=== PATIENT | female | born 1995 | race Caucasian/White ===

== ENCOUNTER 2016-11-03 14:03 | Outpatient (CLI) | payer MEDICAID ==
[~2016-11-03] VITALS: Ht 167.6 cm; Wt 94.5 kg
[~2016-11-03 14:03] MED LIST: HYDR-882 PO; IBUP200T48 PO; NITR100C56 PO; OXYC-302 PO; PREN1TAB60 PO
[2016-11-03 14:25] VITALS: BP 111/59
[2016-11-03] MEDS ORDERED: PREN-3 PO (14:43)
[2016-11-03] MEDS ORDERED: NITR100C56 PO (15:06)
== END 2016-11-03 15:25 | disposition home or self-care (01) ==
LOC: LDOP 14:03
PROVIDERS: ATTEND Obstetrics & Gynecology
DX: O26.892 Other specified pregnancy related conditions, second trimester (principal); O30.002 Twin pregnancy, unspecified number of placenta and unspecified number of amniotic sacs, second trimester; O11.2 Pre-existing hypertension with pre-eclampsia, second trimester; R10.9 Unspecified abdominal pain; Z3A.21 21 weeks gestation of pregnancy
CPT/HCPCS: 59025; 81001; 87086; 99211; G0463

== ENCOUNTER → 2016-11-07 | Outpatient (CLI) | payer MEDICAID ==
[~2016-11-07] MED LIST changes: +PREN-3 PO
== END | disposition home or self-care (01) ==
LOC: LDOP 19:18
PROVIDERS: ATTEND Obstetrics & Gynecology
DX: O36.8120 Decreased fetal movements, second trimester, not applicable or unspecified (principal); Z3A.00 Weeks of gestation of pregnancy not specified
CPT/HCPCS: 59025; 99211; G0463

== ENCOUNTER 2016-12-16 13:10 | Observation (INO) | payer MEDICAID ==
[~2016-12-16] VITALS: Ht 167.6 cm; Wt 96.0 kg
[2016-12-16 13:27] VITALS: BP 121/62
[2016-12-16] MEDS: BUTALB/APAP/CAFFEINE 50MG/325MG/40MG PO PRN ×2 (14:07→18:44)
[2016-12-16] MEDS ORDERED: PREN1TAB60 PO (14:09)
[2016-12-16] MEDS ORDERED: ACET650S21 PO (14:10)
[2016-12-16 14:39] LABS: AMNI OBC PASS; AMNISURE NEGATIVE (NEGATIVE)
[2016-12-16] MEDS ORDERED: LACTATED RINGERS 1,000 ML IVBOLUS ONE ×2 (16:00)
[2016-12-16] MEDS ORDERED: ONDANSETRON 2MG/ML, 2ML IVPush ONE (16:00)
[2016-12-16] MEDS ORDERED: ONDANSETRON 2MG/ML, 2ML ONE (16:10)
[2016-12-16] MEDS ORDERED: TERBUTALINE 1 MG/ML, 1ML ONE (17:35)
[2016-12-16] MEDS ORDERED: LACTATED RINGERS 1,000 ML IV SCH ×2 (18:00)
[2016-12-16] MEDS ORDERED: TERBUTALINE 1 MG/ML, 1ML SQ ONE (18:00)
[2016-12-16] MEDS ORDERED: ONDA8TAB12 PO (18:21)
[2016-12-16] MEDS ORDERED: RANI150T8 PO (18:22)
[2016-12-16] MEDS ORDERED: fioricet PO (18:25)
== END 2016-12-16 18:56 | disposition home or self-care (01) ==
LOC: LDOP 13:10 → LDIP 15:44
PROVIDERS: ADMIT Obstetrics & Gynecology; ATTEND Obstetrics & Gynecology
DX: O26.899 Other specified pregnancy related conditions, unspecified trimester (principal); O29.40 Spinal and epidural anesthesia induced headache during pregnancy, unspecified trimester; Z3A.00 Weeks of gestation of pregnancy not specified
CPT/HCPCS: 36415; 59025; 81001; 82731; 84112; 96361; 96372; 96374; G0378; J2405; J3105; J7120; 96360

== ENCOUNTER 2017-01-20 15:53 | Outpatient (CLI) | payer MEDICAID ==
[~2017-01-20] VITALS: Ht 167.6 cm; Wt 99.0 kg
[~2017-01-20 15:53] MED LIST changes: +ACET650S21 PO; +ONDA8TAB12 PO; +RANI150T8 PO; +fioricet PO
[2017-01-20 16:17] VITALS: BP 132/81
[2017-01-20 16:37] LABS: HEMATOCRIT 36.6 % (34.6-47.8); HEMOGLOBIN 12.2 g/dL (11.7-16.4); WHITE BLOOD COUNT 11.8 x10^3/uL (3.4-10)
[2017-01-20 16:47] LABS: BLOOD UREA NITROGEN 6 mg/dL (7-18)
[2017-01-20 16:50] LABS: ASPARTATE AMINO TRANSFERASE 5 U/L (15-37); LACTATE DEHYDROGENASE 153 U/L (84-246)
== END 2017-01-20 17:40 | disposition home or self-care (01) ==
LOC: LDOP 15:53
PROVIDERS: ATTEND Obstetrics & Gynecology
DX: O11.3 Pre-existing hypertension with pre-eclampsia, third trimester (principal); O30.043 Twin pregnancy, dichorionic/diamniotic, third trimester; Z3A.31 31 weeks gestation of pregnancy
CPT/HCPCS: 36415; 59025; 80053; 81001; 81050; 82248; 82570; 83615; 84156; 84550; 85025; 87086; 99211; G0463

== ENCOUNTER → 2017-01-21 | Outpatient (CLI) | payer MEDICAID ==
[~2017-01-21] VITALS: Ht 167.6 cm; Wt 98.6 kg
[2017-01-21 01:59] VITALS: BP 127/72
== END ==
LOC: LDOP 01:38
PROVIDERS: ATTEND Obstetrics & Gynecology
DX: O11.3 Pre-existing hypertension with pre-eclampsia, third trimester (principal); O30.043 Twin pregnancy, dichorionic/diamniotic, third trimester; Z3A.00 Weeks of gestation of pregnancy not specified
CPT/HCPCS: 59025; 99211; G0463

== ENCOUNTER 2017-02-01 16:53 | Outpatient (CLI) | payer MEDICAID ==
[~2017-02-01] VITALS: Ht 167.6 cm; Wt 86.0 kg
[2017-02-01 17:04] VITALS: BP 132/78
[2017-02-01 17:14] LABS: HEMATOCRIT 40.7 % (34.6-47.8); HEMOGLOBIN 13.4 g/dL (11.7-16.4); WHITE BLOOD COUNT 14.4 x10^3/uL (3.4-10)
[2017-02-01 17:27] LABS: BLOOD UREA NITROGEN 7 mg/dL (7-18)
[2017-02-01 17:34] LABS: ASPARTATE AMINO TRANSFERASE 18 U/L (15-37); LACTATE DEHYDROGENASE 183 U/L (84-246)
[2017-02-01] MEDS ORDERED: BETAMETHASONE 6 MG/ML, 5ML IM ONE ×2 (19:03→19:30)
== END 2017-02-01 19:40 | disposition home or self-care (01) ==
LOC: LDOP 16:53
PROVIDERS: ATTEND Obstetrics & Gynecology
DX: O11.3 Pre-existing hypertension with pre-eclampsia, third trimester (principal); Z3A.00 Weeks of gestation of pregnancy not specified
CPT/HCPCS: 36415; 59025; 80053; 81001; 81050; 82248; 82570; 83615; 84156; 84550; 85025; 86850; 86900; 87081; 99211; J0702; G0463

== ENCOUNTER 2017-02-04 03:25 | Observation (INO) | payer MEDICAID ==
[2017-02-04] MEDS ORDERED: LACTATED RINGERS 1,000 ML IV SCH (04:26)
[2017-02-04] MEDS ORDERED: D5%-LACTATED RINGERS 1,000 ML IV SCH (04:26)
[2017-02-04] MEDS ORDERED: ONDANSETRON 2MG/ML, 2ML IVPush PRN (04:30)
[2017-02-04] MEDS ORDERED: ACETAMINOPHEN 325 MG TABLET PO ONE (05:30)
[2017-02-04] MEDS ORDERED: LACTATED RINGERS 1,000 ML IVBOLUS ONE (08:00)
[2017-02-05] MEDS ORDERED: D5%-LACTATED RINGERS 1,000 ML IV SCH (04:26)
== END 2017-02-04 09:21 | disposition home or self-care (01) ==
LOC: LDOP 03:25 → LDIP 08:38
PROVIDERS: ADMIT Obstetrics & Gynecology; ATTEND Obstetrics & Gynecology
DX: O21.2 Late vomiting of pregnancy (principal); O99.283 Endocrine, nutritional and metabolic diseases complicating pregnancy, third trimester; E86.0 Dehydration; R19.7 Diarrhea, unspecified; O13.3 Gestational [pregnancy-induced] hypertension without significant proteinuria, third trimester; O99.89 Other specified diseases and conditions complicating pregnancy, childbirth and the puerperium; R10.9 Unspecified abdominal pain; O30.043 Twin pregnancy, dichorionic/diamniotic, third trimester; Z3A.34 34 weeks gestation of pregnancy
CPT/HCPCS: 59025; 96360; 96361; G0378; J7120; 96374

== ENCOUNTER 2017-02-20 12:16 | Outpatient (CLI) | payer MEDICAID ==
[~2017-02-20] VITALS: Ht 167.6 cm; Wt 100.9 kg
[2017-02-20 12:47] VITALS: BP 128/58
[2017-02-20 13:09] LABS: HEMATOCRIT 37.9 % (34.6-47.8); HEMOGLOBIN 12.8 g/dL (11.7-16.4)
[2017-02-20 13:22] LABS: ASPARTATE AMINO TRANSFERASE 15 U/L (15-37); BLOOD UREA NITROGEN 7 mg/dL (7-18)
[2017-02-20 13:25] LABS: LACTATE DEHYDROGENASE 153 U/L (84-246)
[2017-02-20 13:36] LABS: AMNI OBC PASS; AMNISURE NEGATIVE (NEGATIVE)
== END 2017-02-20 14:26 | disposition home or self-care (01) ==
LOC: LDOP 12:16
PROVIDERS: ATTEND Obstetrics & Gynecology
DX: O26.893 Other specified pregnancy related conditions, third trimester (principal); O30.043 Twin pregnancy, dichorionic/diamniotic, third trimester; O11.3 Pre-existing hypertension with pre-eclampsia, third trimester; O42.913 Preterm premature rupture of membranes, unspecified as to length of time between rupture and onset of labor, third trimester; R10.9 Unspecified abdominal pain; Z3A.36 36 weeks gestation of pregnancy
CPT/HCPCS: 36415; 59025; 80053; 81001; 82570; 83615; 84112; 84156; 84550; 85025; 87086; 99211; G0463

== ENCOUNTER 2017-08-25 17:10 | Emergency (ER) | payer MEDICAID ==
[~2017-08-25] VITALS: Ht 167.6 cm; Wt 95.0 kg
[~2017-08-25 17:10] MED LIST changes: +DOCU-131 PO; -IBUP200T48 PO; +IBUP200T49 PO; +RANI150T23 PO; -RANI150T8 PO
[2017-08-25 17:16] VITALS: BP 135/91
[2017-08-25] MEDS ORDERED: HYDROcodone/APAP 5/325 TABLET PO STA (17:58)
[2017-08-25] MEDS ORDERED: HYDROcodone/APAP 5/325 TABLET ONE (18:38)
== END 2017-08-25 19:46 | disposition home or self-care (01) ==
LOC: ED 18:39
DX: S39.012A Strain of muscle, fascia and tendon of lower back, initial encounter (principal); S29.012A Strain of muscle and tendon of back wall of thorax, initial encounter; S40.021A Contusion of right upper arm, initial encounter; S80.11XA Contusion of right lower leg, initial encounter; W20.8XXA Other cause of strike by thrown, projected or falling object, initial encounter; Y93.89 Activity, other specified; Y92.098 Other place in other non-institutional residence as the place of occurrence of the external cause; Y99.8 Other external cause status
CPT/HCPCS: 72050; 72110; 99284